=== PATIENT | male | born 1940 | race Caucasian/White ===

== ENCOUNTER → 2017-02-12 | Outpatient (REF) | payer MEDICARE | LOC: M LABSMT 07:13 | PROVIDERS: ATTEND Nurse Practitioner Women's Health | DX: N40.1 Benign prostatic hyperplasia with lower urinary tract symptoms (principal); R97.20 Elevated prostate specific antigen [PSA] ==

== ENCOUNTER → 2017-08-04 | Outpatient (CLI) | payer MEDICARE ==
[2017-08-05 14:15] LABS: PSA TOTAL 3.1 ng/mL (0.0-4.0)
== END ==
LOC: M SMT 08:24
PROVIDERS: ATTEND Urology
DX: R97.20 Elevated prostate specific antigen [PSA] (principal)

== ENCOUNTER → 2020-12-04 | Outpatient (REF) | payer MEDICARE ==
[2020-12-05 23:06] LABS: PSA % FREE 12.5 % (.); PSA FREE 0.91 ng/mL; PSA TOTAL 7.3 ng/mL (0.0-4.0)
== END ==
LOC: M PLALAB 13:39 → M SMT 13:39
PROVIDERS: ATTEND Urology
DX: R97.20 Elevated prostate specific antigen [PSA] (principal)

== ENCOUNTER → 2021-01-15 | Outpatient (CLI) | payer MEDICARE ==
--- NOTE | 2021-01-15 13:10 | REPPI ---
INDICATION: ELEVATED PSA. COMPARISON: None. TECHNIQUE: Transrectal prostate sonography. FINDINGS: Trans rectal prostate sonography demonstrates unremarkable seminal vesicles. Prostate gland is heterogeneous, with calcifications and cystic changes noted. Glandular dimensions are measured at 5.5 x 4.6 x 6.6 cm with a calculated glandular volume of 86.6 ml. There is a 0.6 cm nodule in the left posterior mid gland. Transrectal sonographic guidance is provided to Dr. Gomez who performed trans rectal ultrasound guided needle biopsy procedure. IMPRESSION: Transrectal prostate sonographic findings as above. <Electronically signed by Rolando Burch > 01/15/21 [id number]
== END ==
LOC: M RADPRO 09:14
PROVIDERS: ATTEND Urology
DX: C61 Malignant neoplasm of prostate (principal)
CPT/HCPCS: 55700; 76872; 76942; 88341; 88342; G0416

== ENCOUNTER → 2021-02-08 | Outpatient (REF) | payer MEDICARE | LOC: M LAB REF 16:31 | PROVIDERS: ATTEND Ophthalmology | DX: H02.834 Dermatochalasis of left upper eyelid (principal); H02.831 Dermatochalasis of right upper eyelid ==

== ENCOUNTER → 2021-04-19 | Outpatient (CLI) | payer MEDICARE | LOC: M PLALAB 08:15 | PROVIDERS: ATTEND Urology | DX: C61 Malignant neoplasm of prostate (principal) ==

== ENCOUNTER → 2021-07-22 | Outpatient (CLI) | payer MEDICARE | LOC: M PLALAB 09:11 | PROVIDERS: ATTEND Urology | DX: C61 Malignant neoplasm of prostate (principal) ==

== ENCOUNTER → 2021-11-06 | Outpatient (CLI) | payer MEDICARE | LOC: M PLALAB 08:32 | PROVIDERS: ATTEND Urology | DX: C61 Malignant neoplasm of prostate (principal) ==

== ENCOUNTER → 2022-01-30 | Outpatient (CLI) | payer MEDICARE | LOC: M PLALAB 08:23 | PROVIDERS: ATTEND Urology | DX: C61 Malignant neoplasm of prostate (principal) ==

== ENCOUNTER → 2022-08-20 | Outpatient (CLI) | payer MEDICARE | LOC: M PLALAB 09:18 | PROVIDERS: ATTEND Urology | DX: C61 Malignant neoplasm of prostate (principal) ==

== ENCOUNTER → 2022-10-17 | Outpatient (CLI) | payer OTHER | LOC: M PLALAB 08:52 | PROVIDERS: ATTEND Urology | DX: C61 Malignant neoplasm of prostate (principal) ==

== ENCOUNTER → 2023-01-21 | Outpatient (CLI) | payer OTHER | LOC: M PLALAB 08:52 | PROVIDERS: ATTEND Urology | DX: C61 Malignant neoplasm of prostate (principal) ==

== ENCOUNTER → 2023-02-06 | Outpatient (REF) | payer OTHER ==
[2023-02-06 14:45] LABS: APPEARANCE, URINE MANUAL CLEAR (CLEAR); COLOR, URINE MANUAL YELLOW (YELLOW)
[2023-02-06 14:46] LABS: GLUCOSE, URINE (UA) MANUAL NEGATIVE (NEGATIVE); PH,URINE MAN 5.5 UNITS (5.0 - 7.0); PROTEIN, URINE MANUAL TRACE mg/dL (NEGATIVE)
[2023-02-06 14:47] LABS: BILIRUBIN, URINE MANUAL NEGATIVE (NEGATIVE); BLOOD URINE MANUAL NEGATIVE (NEGATIVE); KETONE, URINE MANUAL NEGATIVE (NEGATIVE); LEUKOCYTE ESTERASE, URINE MAN NEGATIVE (NEGATIVE); NITRITE, URINE MANUAL NEGATIVE (NEGATIVE); UROBILINOGEN, URINE MANUAL NORMAL (NORMAL)
[2023-02-06 14:51] LABS: BACTERIA, URINE NONE SEEN; HYALINE CAST, URINE NONE SEEN /lpf (0-1); RBC, URINE 0-1 /hpf (0-3); SQUAMOUS EPITHELIAL CELL URINE SMALL AMOUNT /hpf (SMALL AMT)
[2023-02-06 15:23] LABS: CREATININE, URINE 101.4 MG/DL; MAU/CREAT RATIO 37.4 MCG/MG (0.0-30.0)
== END ==
LOC: M LAB REF 12:13
PROVIDERS: ATTEND Internal Medicine
DX: I12.9 Hypertensive chronic kidney disease with stage 1 through stage 4 chronic kidney disease, or unspecified chronic kidney disease (principal); N18.9 Chronic kidney disease, unspecified

== ENCOUNTER → 2023-02-17 | Outpatient (CLI) | payer OTHER | LOC: M RAD 13:49 | PROVIDERS: ATTEND Internal Medicine | DX: N18.31 Chronic kidney disease, stage 3a (principal); N40.0 Benign prostatic hyperplasia without lower urinary tract symptoms; N32.3 Diverticulum of bladder; D73.9 Disease of spleen, unspecified ==

== ENCOUNTER → 2023-04-13 | Outpatient (CLI) | payer OTHER | LOC: M PLALAB 10:06 | PROVIDERS: ATTEND Urology | DX: C61 Malignant neoplasm of prostate (principal) ==

== ENCOUNTER → 2023-07-21 | Outpatient (CLI) | payer OTHER | LOC: M PLALAB 10:54 | PROVIDERS: ATTEND Urology | DX: C61 Malignant neoplasm of prostate (principal) ==

== ENCOUNTER → 2024-01-06 | Outpatient (CLI) | payer OTHER | LOC: M PLALAB 08:24 | PROVIDERS: ATTEND Urology | DX: C61 Malignant neoplasm of prostate (principal) ==

== ENCOUNTER → 2024-02-02 | Outpatient (CLI) | payer OTHER | LOC: M WUC 11:05 | PROVIDERS: ATTEND Internal Medicine | DX: M54.50 Low back pain, unspecified (principal); M85.88 Other specified disorders of bone density and structure, other site; M47.816 Spondylosis without myelopathy or radiculopathy, lumbar region ==

== ENCOUNTER → 2024-02-23 | Outpatient (CLI) | payer OTHER | LOC: M WHC 14:19 | PROVIDERS: ATTEND Internal Medicine | DX: M85.851 Other specified disorders of bone density and structure, right thigh (principal); M85.852 Other specified disorders of bone density and structure, left thigh ==

== ENCOUNTER → 2024-04-18 | Outpatient (REF) | payer OTHER ==
[2024-04-18 18:15] LABS: PERCENT SATURATION 21.7 % (19.7-50.0)
== END ==
LOC: M LAB REF 17:08
PROVIDERS: ATTEND Internal Medicine Nephrology
DX: D50.9 Iron deficiency anemia, unspecified (principal)

== ENCOUNTER → 2024-05-13 | Outpatient (CLI) | payer OTHER | LOC: M PLALAB 09:29 | PROVIDERS: ATTEND Urology | DX: C61 Malignant neoplasm of prostate (principal) ==

== ENCOUNTER → 2024-08-08 | Outpatient (REF) | payer OTHER ==
[2024-08-08 13:44] LABS: PHOSPHORUS LEVEL 3.3 MG/DL (2.4-5.1); PTH INTACT 8.7 PG/ML (18.5-88.0)
== END ==
LOC: M LAB REF 12:10
PROVIDERS: ATTEND Internal Medicine
DX: N18.32 Chronic kidney disease, stage 3b (principal)

== ENCOUNTER → 2024-11-14 | Outpatient (REF) | payer OTHER ==
[2024-11-14 18:04] LABS: CREATININE,RANDOM URINE 102.1 MG/DL
[2024-11-14 18:08] LABS: TOTAL PROTEIN,RANDOM URINE 131.4 MG/DL (0.0-14.0)
== END ==
LOC: M LAB REF 16:53
PROVIDERS: ATTEND Nurse Practitioner Family
DX: R80.9 Proteinuria, unspecified (principal)

== ENCOUNTER → 2024-12-28 | Outpatient (REF) | payer OTHER ==
[2024-12-28 18:45] LABS: CREATININE,RANDOM URINE 86.1 MG/DL
[2024-12-28 18:46] LABS: TOTAL PROTEIN,RANDOM URINE 168.9 MG/DL (0.0-14.0)
== END ==
LOC: M LAB REF 16:41
PROVIDERS: ATTEND Nurse Practitioner Family
DX: I12.9 Hypertensive chronic kidney disease with stage 1 through stage 4 chronic kidney disease, or unspecified chronic kidney disease (principal)

== ENCOUNTER → 2025-03-28 | Outpatient (REF) | payer OTHER ==
[2025-03-28 18:00] LABS: TOTAL PROTEIN,RANDOM URINE 127.0 MG/DL (0.0-14.0)
== END ==
LOC: M LAB REF 17:09
PROVIDERS: ATTEND Nurse Practitioner Family
DX: I12.9 Hypertensive chronic kidney disease with stage 1 through stage 4 chronic kidney disease, or unspecified chronic kidney disease (principal)

== ENCOUNTER → 2025-05-03 | Outpatient (CLI) | payer OTHER | LOC: M PLALAB 10:04 | PROVIDERS: ATTEND Urology | DX: C61 Malignant neoplasm of prostate (principal) ==

== ENCOUNTER → 2025-08-02 | Outpatient (CLI) | payer OTHER | LOC: M PLALAB 08:12 | PROVIDERS: ATTEND Urology | DX: C61 Malignant neoplasm of prostate (principal) ==

== ENCOUNTER → 2025-08-04 | Outpatient (REF) | payer OTHER ==
[2025-08-04 15:41] LABS: PTH INTACT 35.3 PG/ML (18.5-88.0)
== END ==
LOC: M LAB REF 14:40
PROVIDERS: ATTEND Internal Medicine
DX: N18.32 Chronic kidney disease, stage 3b (principal)

== ENCOUNTER → 2025-08-11 | Outpatient (REF) | payer OTHER ==
[2025-08-11 18:49] LABS: TOTAL PROTEIN,RANDOM URINE 175.7 MG/DL (0.0-14.0)
== END ==
LOC: M LAB REF 16:56
PROVIDERS: ATTEND Nurse Practitioner Family
DX: R80.9 Proteinuria, unspecified (principal)